=== PATIENT | male | born 1930 | race Caucasian/White ===

== ENCOUNTER 2016-08-31 22:34 | Inpatient (IN) | payer MEDICARE, OTHER ==
[~2016-08-31] VITALS: Ht 172.7 cm; Wt 71.4 kg
--- NOTE | ~2016-08-31 | HP ---
PATIENT'S NAME: JULISSA CHINCHILLA [facility] AGE: 86 Y [address] ROOM: [place] [address] LOCATION: GPCU ADMIT DATE: 09/01/2016 History & Physical DISCHARGE DATE: FAMILY PHYSICIAN: Patrick Reynolds MD ATTENDING PHYSICIAN: MAIA ALBRIGHT V DATE OF SERVICE: CHIEF COMPLAINT: Weak. History is provided by the ER physician primarily as the patient is a very poor historian. HISTORY OF PRESENT ILLNESS: This is an 86-year-old male with past medical history as documented further below. Apparently, the patient and his spend approximately half their time in [place], and came back recently from there. The patient developed fever and fatigue, and was brought into the ER today. He himself actually does not volunteer any symptoms. However, his felt that he was weak, and he did indeed have a fever of 102 in the ER. Per history as conveyed to me by the ER provider, the patient was also sick in [place] and spent a couple of days in the hospital, though we do not have the details of that hospitalization. At this point, the patient actually volunteers no complaints. REVIEW OF SYSTEMS: All systems have been reviewed and are negative aside for pertinent positives mentioned above. PAST MEDICAL HISTORY: As extracted from our charts, 1. Coronary artery disease, status post CABG. 2. Aortic stenosis, status post aortic valve replacement. 3. Parkinson disease. 4. Dementia. 5. CKD, stage 3. 6. Anemia of chronic disease. 7. Transitional bladder cell. 8. Hypertension. CURRENT MEDICATIONS: 1. Aspirin. 2. Carbidopa/levodopa. 3. Cholestyramine. 4. Ferrous sulfate. PATIENT'S NAME: JULISSA CHINCHILLA [facility] AGE: 86 Y [address] ROOM: [place] [address] LOCATION: GPCU ADMIT DATE: 09/01/2016 History & Physical DISCHARGE DATE: FAMILY PHYSICIAN: Patrick Reynolds MD ATTENDING PHYSICIAN: MAIA ALBRIGHT V 5. Galantamine. 6. Losartan. 7. Multivitamin. 8. Omeprazole. 9. Pramipexole. 10. Simvastatin. 11. Lorazepam. 12. Seroquel. 13. Sertraline. SOCIAL HISTORY: The patient denies any ongoing toxic habits, though he is not a reliable provider of history. FAMILY HISTORY: Reviewed and noncontributory due to advanced age. PHYSICAL EXAMINATION: VITAL SIGNS: His temperature max was 102.2, blood pressure upon my visit was 95/65, heart rate was in the 80s, respirations were 20, and saturating 96 on room air. GENERAL: He appears chronically ill, frail, elderly male, in no acute distress. NEUROLOGIC: Nonfocal. EYES: Showed pupils are equal and reactive to light. LYMPHATIC: Showed no cervical lymphadenopathy. ENDOCRINE: Showed no thyromegaly. LUNGS: Demonstrated crackles at the right base, slightly more pronounced than at the left base. HEART: Regular with 2/6 systolic murmur and 1+ pitting lower extremity edema. GASTROINTESTINAL: Abdomen is soft, nontender, and nondistended. GENITOURINARY: Reveals no costovertebral angle tenderness. VASCULAR: Showed 2+ pedal pulses. PSYCHIATRIC: The patient is actually alert and oriented to himself and place, but not to time. LABORATORY DATA AND DIAGNOSTIC STUDIES: Review of studies from the ER showed an EKG with deep S waves in leads V1 through V3. A biochemical profile, which is significant for a troponin of 0.072 and creatinine of 1.8, which is his baseline. CBC that shows normal white count. No bandemia. Urinalysis is unremarkable. CAT scan of his chest demonstrated atelectasis versus early infiltrate bilaterally, as well as cardiomegaly. ASSESSMENT AND PLAN: PATIENT'S NAME: JULISSA CHINCHILLA [facility] AGE: 86 Y [address] ROOM: [place] [address] [facility] ADMIT DATE: 09/01/2016 History & Physical DISCHARGE DATE: FAMILY PHYSICIAN: Patrick Reynolds MD ATTENDING PHYSICIAN: MAIA ALBRIGHT V This is an 86-year-old male, who is being admitted with 1. Febrile illness after traveling abroad. The patient was started on Levaquin here in the ER for presumed pneumonia. We will continue that. We will check for infulenza. We will request an ID consultation as the patient has just came back from [place]. We will follow his fever curve and treat his temperatures. 2. Parkinson disease. Continue on his carbidopa/levodopa. 3. Dementia. Continue with galantamine. 4. Cardiomegaly on the CT. We will monitor the patient on telemetry and get an echocardiogram as there were also some pleural effusions bilaterally. 5. Troponin elevation. We will monitor the patient on telemetry and obtain a troponin. I feel that this may be related to his chronic kidney disease. Additional management will depend on clinical course. Time dedicated to this patient's encounter is 25 minutes. MD TERESE GARCIA/camilo /[id number] D: [id number] T: [id number] HISTORY & PHYSICAL
--- NOTE | ~2016-08-31 | ECHO ---
Transthoracic Echocardiography Report (TTE) Demographics Patient Name JULISSA CHINCHILLA Date of Study 09/01/2016 Patient Number [id number] Visit Number [id number] Date of 1930 Room Number G6317 Gender Male Number Age 86 year(s) Referring Rodolfo Mack Security Alarm Technician Ronal Truong RVT, Physician RDGERMAN Physician Interpreting Zofia Macario Steel Burner Physician MD Supervising Ordering Arlene Saeed MD/ALANA Physician Nurse Stress Receiving Dock Checker Conclusions Contractility Score Summary Normal Left Ventricular contractility was noted. Summary The estimated left ventricular ejection fraction is 55% with normal WM and internal dimension.Moderate septal left ventricular hypertrophy. The left atrium is severely dilated. Mild mitral regurgitation by color Doppler. Moderate mitral annular calcification. The aortic valve is moderately sclerotic (? bioprosthetic valve) There is a mild elevation of velocity through the aortic valve. Procedure Type of Study TTE procedure:2D Echocardiogram. Procedure Date Date: 09/01/2016 Start: 03:30 PM Study Location: Inpatient Portable Technical Quality: Adequate visualization Indications:Cardiomegaly. Appropriate Use Criteria: 8 Patient Status: Routine HR: 99 bpm BP: 142/63 mmHg M-Mode/2D Measurements LV Diastolic Dimension: 4.64 cm LV Systolic Dimension: 3.36 cm LV Septum Diastolic: 1.86 cm LV PW Diastolic: 0.73 cm AO Root Dimension: 2.7 cm Cardiac Output: 6.28 l/min AV Cusp Separation: 1.7 cm RV Diastolic Dimension: 3.09 cm LA volume: 91 ml LVOT: 2.2 cm RV Base: 3.87 cm LVOT VTI: 16.7 cm RV Mid: 3.12 cm LV Stroke volume: 63.45 ml TAPSE: 1.93 cm TDI-S': 13.2 cm/s Doppler Measurements AV Peak Velocity: 2.18 m/s MV Peak E-Wave: 0.9 m/s AV Peak Gradient: 19.01 mmHg MV Peak A-Wave: 1.11 m/s AV Mean Gradient: 12 mmHg MV E/A Ratio: 0.81 LVOT Peak Velocity: 0.94 m/s MV P1/2t: 59 msec PV Peak Velocity: 0.92 m/s E' Septal Velocity: 0.04 m/s PV Peak Gradient: 3.42 mmHg E' Lateral Velocity: 0.05 m/s A' Septal Velocity: 0.07 m/s A' Lateral Velocity: 0.09 m/s Findings Left Ventricle Moderate septal left ventricular hypertrophy with normal internal dimension,EF and WM. Right Ventricle Normal right ventricle structure and function. Left Atrium The left atrium is severely dilated. There is no evidence of patent foramen ovale or atrial septal defect by color Doppler. Right Atrium Normal right atrial size. Increased RA pressures. Mitral Valve Mild mitral regurgitation by color Doppler. Moderate mitral annular calcification. Aortic Valve The aortic valve is moderately sclerotic. There is a mild elevation of velocity through the aortic valve. Tricuspid Valve Normal tricuspid valve structure and function. Pulmonic Valve Normal pulmonic valve structure and function. Pericardial Effusion No evidence of pericardial effusion. Miscellaneous Visualized portions of the aortic root and ascending aorta appear normal in size. Suboptimal subcostal window to evaluate the IVC and interatrial septum. Pleural Effusion No evidence of pleural effusion. Contractility Score LV regional wall motion:(0-Non visualized 1-Normal 2-Hypokinesis 3-Akinesis 4-Dyskinesis 5-Aneurysm) Signature dtt: Amirah Armijo dtd: 09/01/16 1530 Physician Self Edit
--- NOTE | ~2016-08-31 | DS ---
PATIENT'S NAME: JULISSA CHINCHILLA [facility] AGE: 86 Y [address] ROOM: G6317 [place], [place] [address] LOCATION: GPCU ADMIT DATE: 09/01/2016 Discharge Summary DISCHARGE DATE: 09/03/2016 FAMILY PHYSICIAN: Patrick Reynolds MD ATTENDING PHYSICIAN: Liu Jacobs V FINAL DIAGNOSES: 1. Influenza B. 2. Elevated troponins. 3. Chronic obstructive pulmonary disease exacerbation. 4. Acute encephalopathy. 5. Chronic dementia. 6. Stage 3 chronic kidney disease. 7. Arrhythmia. 8. Hypertension. 9. Acute hypoxic respiratory failure. HISTORY OF PRESENT ILLNESS: For full details of admission, please see the H and P dictated by Dr. Jacobs. In short, the patient presented to the ER with complaints of a fever, fatigue, and not feeling very well for 24 hour period. The patient and his had just returned from [place]. LABORATORY DATA: Sodium on admission 139, potassium 3.9, chloride 106, CO2 24, BUN 26, and creatinine 1.8. Liver enzymes were normal. Most prior to discharge, sodium 141, potassium 4.1, chloride 112, CO2 20, BUN 21, and creatinine 1.7. His mag was 1.3, which he was given a replacement prior to discharge. Troponin values on the 3rd 0.072, on the 4th 0.324, on the 5th 0.537. White blood cell count on admission 6.5, hemoglobin 10.7, hematocrit 33.7, and platelet count 162. Most prior to discharge, white blood cell count 6, hemoglobin 10.4. Influenza studies; he was positive for influenza B on admission. Procalcitonin on admission was less than 0.05. Blood cultures and urine cultures were negative. X-RAY DATA: Thoracic CT scan on admission showed cardiomegaly, atelectasis, and no evidence of mass. Chest x-ray on the 6th for coughing and wheezing did not show development of a pneumonia. HOSPITAL COURSE: The patient was admitted through the emergency room after being admitted with a febrile illness. He is admitted to PCU and given aggressive IV hydration. He was started on IV Levaquin. He was resumed on his home meds. His influenza studies returned positive and he was initiated on Tamiflu 75 mg twice a day for 7 days. His troponins were noted to be elevated. An echocardiogram was obtained, which showed his ejection fraction to be 55%. He had moderate septal hypertrophy. His left atrium was dilated. He had a sclerotic aortic valve. The troponins were tracked and they did PATIENT'S NAME: JULISSA CHINCHILLA [facility] AGE: 86 Y [address] ROOM: [place] [address] LOCATION: GPCU ADMIT DATE: 09/01/2016 Discharge Summary DISCHARGE DATE: 09/03/2016 FAMILY PHYSICIAN: Patrick Reynolds MD ATTENDING PHYSICIAN: Liu Jacobs V remain elevated and his rhythm appeared was predominantly sinus, he had frequent PACs, at times, it almost appeared that he was having AFib. I did have Dr. Thompson see this patient from a Cardiology standpoint because the patient had a history of coronary artery disease and it was most likely thought that he could have had an ischemic event; however, due to his advanced age and the fact that he was doing so well, it was felt that we would just manage it medically. His fever broke, he did continue to have issues with coughing and wheezing, he was placed on Mucinex and given Solu-Medrol, a chest x-ray was done to follow up to make sure that he did not develop pneumonia. He continued to improve, remained afebrile, remained without chest pain, ambulated in the hallway without any difficulty, it was felt that he was stable for discharge to home on September 03. He is to follow up with his primary care provider, Dr. Jay Reynolds, in 3-5 days. DISCHARGE MEDICATIONS: 1. Aspirin 81 mg daily. 2. Ferrous sulfate 325 mg daily. 3. Cozaar 50 mg daily. 4. Multivitamin daily. 5. Seroquel 50 mg at bedtime and 25 mg in the morning. 6. Zoloft 50 mg daily. 7. Simvastatin 20 mg at bedtime. 8. Carbidopa 25/100 1 pill twice daily. 9. Cholestyramine 4 g daily. 10. Razadyne ER 8 mg daily. 11. Mirapex 0.25 mg twice daily. 12. Omeprazole 40 mg daily. 13. Lorazepam 1 mg 3 times daily as needed. 14. Norvasc 5 mg daily. 15. Guaifenesin 600 mg 3 times daily. 16. Tamiflu 30 mg twice daily to complete a course through September 05. 17. Prednisone 20 mg 3 times daily. PROGNOSIS: Overall, prognosis at discharge was good. The did voice understanding. REZA ARAIZA MD LAW/modl /[id number] PATIENT'S NAME: JULISSA CHINCHILLA [facility] AGE: 86 Y [address] ROOM: [place] [address] LOCATION: [facility] ADMIT DATE: 09/01/2016 Discharge Summary DISCHARGE DATE: 09/03/2016 FAMILY PHYSICIAN: Patrick Reynolds MD ATTENDING PHYSICIAN: Liu Jacobs V CC: Patrick Reynolds MD d: 09/05/16 0126 t: 09/06/16 1301, DISCHARGE SUMMARY
--- NOTE | ~2016-08-31 | CON ---
PATIENT'S NAME: JULISSA CHINCHILLA [facility] AGE: 86 Y [address] ROOM: [place] [id number] LOCATION: GPCU ADMIT DATE: 09/01/2016 Consultation DISCHARGE DATE: FAMILY PHYSICIAN: Patrick Reynolds MD ATTENDING PHYSICIAN: MAIA ALBRIGHT V DATE OF CONSULTATION: 09/02/2016 REFERRING PHYSICIAN: JORGITO VILLA MD REASON FOR CARDIOLOGY CONSULT: Elevated troponin level. HISTORY OF PRESENT ILLNESS: This is an 86-year-old male, who has a previous history of stroke after his CABG and currently has advanced Parkinson disease with dementia. He is currently admitted with influenza B. When questioned, he denies any symptoms and most questions are answered by his regarding his previous symptoms prior to hospitalization as well as his medical history. She states he was admitted with increased shortness of breath and cough and he did have a noted wheeze and fever. No overall complaints of chest pain. Once again, he does have advanced Parkinson disease with dementia and due to that, he is not physically active and has not been for the past 2 years. At the time of this consult, he is resting comfortably in his chair and appears to be in no acute distress. PAST MEDICAL HISTORY: 1. Coronary artery disease with a history of coronary artery bypass graft. 2. Aortic stenosis with an aortic valve replacement. 3. Advanced Parkinson disease with dementia. 4. Chronic kidney disease. 5. History of bladder cancer. 6. Chronic anemia. 7. Hypertension. FAMILY HISTORY: The patient's father had a history of coronary artery disease and myocardial infarction. He has 2 brothers, who are diabetic and have coronary artery disease. SOCIAL HISTORY: The patient denies ever using tobacco. He also denies alcohol or illicit drug use. CURRENT MEDICATIONS: 1. Magnesium sulfate IV replacement 1 gram x1. PATIENT'S NAME: JULISSA CHINCHILLA [facility] AGE: 86 Y [address] ROOM: [id number] [place] [id number] LOCATION: GPCU ADMIT DATE: 09/01/2016 Consultation DISCHARGE DATE: FAMILY PHYSICIAN: Patrick Reynolds MD ATTENDING PHYSICIAN: MAIA ALBRIGHT V 2. Aspirin 81 mg p.o. daily. 3. Cozaar 50 mg p.o. daily. 4. Ferrous sulfate 325 mg p.o. twice daily. 5. Mucinex 600 mg p.o. 3 times daily. 6. Lactinex 1 tablet p.o. twice daily. 7. Mirapex 0.25 mg p.o. twice daily. 8. Oseltamivir phosphate 30 mg p.o. twice daily. 9. Prevalite 4 grams p.o. daily at noon. 10. Protonix 40 mg p.o. daily in the morning. 11. Razadyne 4 mg p.o. twice daily. 12. Seroquel 25 mg p.o. daily in the morning. 13. Seroquel 50 mg p.o. daily in the evening. 14. Sinemet 25/100 one tablet p.o. twice daily. 15. Multivitamin 1 tablet p.o. daily. 16. Zocor 20 mg p.o. daily in the evening. 17. Zoloft 50 mg p.o. daily. MEDICATION ALLERGIES: 1. Azithromycin causing burning at the IV site when he was infused. 2. Ambien causing hallucinations. REVIEW OF SYSTEMS: Pertinent positive review of systems listed in the HPI. All other review of systems evaluated and negative. DIAGNOSTICS: CMS evaluation shows a sodium of 139, potassium of 3.9, BUN of 26, creatinine of 1.8, and a glucose of 86. CBC evaluation shows a white blood cell count of 6, hemoglobin of 10.4, hematocrit of 32.7, and a platelet of 136. Cardiac enzyme evaluation shows a CPK of 93, then 107; CK-MB of 1.6, then 3.0; and a troponin I of 0.072, then 0.324. His echocardiogram shows an ejection fraction of 55% with normal wall motion noted. There is a presence of his bioprosthetic aortic valve. PHYSICAL EXAMINATION: VITAL SIGNS: Temperature 98.9, pulse 80, respirations 18, blood pressure 150/62, and O2 saturation 93% on room air. The patient weighs 71.9 kg. SKIN: [place], warm, and dry. EYES: Sclerae clear. No xanthelasmas. ENT: Oral mucosa is pink and moist. No jugular venous distention or carotid bruits. CHEST: Respirations are even and slightly labored. Lung sounds show bilateral coarse expiratory rhonchi. HEART: Irregular rate and rhythm. Normal S1 and S2. Appears to be in a sinus rhythm with very frequent PACs. PATIENT'S NAME: JULISSA CHINCHILLA [facility] AGE: 86 Y [address] ROOM: [id number] [place] [id number] [facility] ADMIT DATE: 09/01/2016 Consultation DISCHARGE DATE: FAMILY PHYSICIAN: Patrick Reynolds MD ATTENDING PHYSICIAN: MAIA ALBRIGHT V ABDOMEN: Soft and nontender. MUSCULOSKELETAL: Equal muscle strength to upper and lower extremities bilaterally against resistance. EXTREMITIES: Peripheral pulses palpable. No clubbing, cyanosis, or edema. PSYCH: Disoriented to place and time. He is alert and oriented to self. IMPRESSION AND PLAN: Per Dr. Thompson. 1. Coronary artery disease with a history of coronary artery bypass grafting. We will continue his aspirin and statin. He is not on a beta- radha due to his severe chronic obstructive pulmonary disease. 2. Elevated troponins. 3. Accelerated hypertension. We will add amlodipine to his current losartan. 4. Chronic kidney disease with a creatinine of 1.7 currently. 5. Advanced Parkinson disease with dementia. 6. History of bladder cancer. 7. Hypomagnesemia, we will replace. With the patient's frequent PACs, we are unable to exclude brief episodes of atrial fibrillation. Dr. Thompson did discuss with the patient and his about long-term anticoagulation. The patient does have unsteadiness of gait and has fallen over 25 times and the most recent fall was in June 2016. The patient and his do not want long-term anticoagulation due to this risk. There is also the noted mild elevation in troponins and most likely secondary to demand supply mismatch, secondary to his COPD exacerbation. Overall, the patient and family do not want aggressive measures including cardiac catheterization, which is a reasonable consideration due to his medical comorbidities. We will continue to monitor, evaluate, and treat as appropriate. Thank you Dr. Alayna Erazo for this consult. Thank you for allowing [facility] to interact in the care of this patient. ALICE BARROSO APRN FOR MD SATNAM DUGAN/modl /[id number] d: 09/03/16 0014 t: 09/21/16 1931, CONSULTATION REPORT
--- NOTE | ~2016-08-31 | ER ---
PATIENT'S NAME: JULISSA CHINCHILLA [facility] AGE: 86 Y [address] ROOM: [place] [address] LOCATION: GPCU ADMIT DATE: 09/01/2016 ER/Outpatient Report DISCHARGE DATE: FAMILY PHYSICIAN: Patrick Reynolds MD ATTENDING PHYSICIAN: MAIA ALBRIGHT V TIME OF PATIENT ARRIVAL: 2234 hours. TIME OF PATIENT EVALUATION: 2234 hours. CHIEF COMPLAINT: Cough and weakness. HISTORY OF PRESENT ILLNESS: This is an 86-year-old male who presents to the ER with his who states that he started feeling ill today. The patient's states he was doing well yesterday, and then today, developed some cough, altered mental status, and some shortness of breath. She is not for sure if he has been running any fevers or not at home. She states they just got back from [place]. They were in [place] for 6 months, and they returned a couple of weeks ago. She states that while they were down there, he did have pneumonia. The patient is a poor historian and does not offer any history. ALLERGIES: AZITHROMYCIN. MEDICATIONS: Please see medication list, nurse's notes. PAST MEDICAL HISTORY: 1. Bladder cancer. 2. Parkinson's. 3. Skin cancer. 4. CHF. 5. COPD. 6. Heart disease. 7. Hypertension. 8. Recent pneumonia in [place]. 9. Hiatal hernia. 10. AAA. 11. Chronic kidney disease, stage 3. 12. History of anemia. PATIENT'S NAME: JULISSA CHINCHILLA [facility] AGE: 86 Y [address] ROOM: [place] [address] LOCATION: GPCU ADMIT DATE: 09/01/2016 ER/Outpatient Report DISCHARGE DATE: FAMILY PHYSICIAN: Patrick Reynolds MD ATTENDING PHYSICIAN: MAIA ALBRIGHT V PAST SURGICAL HISTORY: 1. Open heart surgery with 3 bypasses. 2. Aortic valve replacement. 3. Cholecystectomy. 4. Hernia repair. SOCIAL HISTORY: Denies smoking, drug, or alcohol use. REVIEW OF SYSTEMS: A 10-point review of systems was completed and was negative with the exception of those discussed in the HPI, and this is provided through his . PHYSICAL EXAMINATION: VITAL SIGNS: Height 5 feet 7 inches stated per , weight 73.5 kg taken, blood pressure is 168/93, pulse 107, respirations 20, temperature is 102.2 degrees tympanically, and saturation is 92% on room air. GENERAL: Alert, frail, elderly male in no acute distress. HEENT. Head: Normocephalic. He does have moist mucous membranes. Eyes: Pupils are equal and reactive to light. NECK: Supple. No lymphadenopathy. LUNGS: He does have crackles bilaterally, but more prominent on the left side. HEART: He does have a murmur noted. Irregular rate. ABDOMEN: Soft and nontender. EXTREMITIES: He does have 1+ pitting edema to lower extremities. He is able to move all of his extremities. SKIN: Warm, dry, and intact. NEUROLOGIC: Gait is not observed. LABORATORY DATA: X-rays and labs are pending. EMERGENCY ROOM COURSE: I will be turning the care over to Dr. Lovett at this time. During my course with the patient, we did establish an IV and did get 2 sets of blood cultures. The patient's care will be turned over to Dr. Lovett at this time. The patient and the patient's understand and agree with care. LALA PALOMINO PA-C FOR MD HAMLET HARDWICK/camilo PATIENT'S NAME: JULISSA CHINCHILLA [facility] AGE: 86 Y [address] ROOM: [place] [address] LOCATION: GPCU ADMIT DATE: 09/01/2016 ER/Outpatient Report DISCHARGE DATE: FAMILY PHYSICIAN: Patrick Reynolds MD ATTENDING PHYSICIAN: MAIA ALBRIGHT V /[id number] d: 09/01/16 1635 t: 09/11/16 0633, OUTPATIENT REPORT
--- NOTE | ~2016-08-31 | ER ---
PATIENT'S NAME: JULISSA CHINCHILLA [facility] AGE: 86 Y [address] ROOM: [place] [address] LOCATION: GPCU ADMIT DATE: 09/01/2016 ER/Outpatient Report DISCHARGE DATE: FAMILY PHYSICIAN: Patrick Reynolds MD ATTENDING PHYSICIAN: MAIA ALBRIGHT V Time of Arrival: 2234 hours. Time of Evaluation: 2236 hours. IDENTIFICATION: An 86-year-old male who was initially seen briefly by ZANDER Hanson. I quickly assumed care after her initial assessment. HISTORY OF PRESENT ILLNESS: The patient is an 86-year-old male, who complains of shortness of breath, altered mental status, and cough, starting earlier today. They just returned home from [place] where they spend 6 months of the year. He was hospitalized in June for pneumonia in [place] for 2 days. He has had a fever, chills, productive cough, uncertain color of the sputum, shortness of breath, and altered mental status today according to his . PAST MEDICAL HISTORY: ALLERGIES: AZITHROMYCIN. CURRENT MEDICATIONS: 1. Aspirin 81 mg daily. 2. Carbidopa/levodopa 25/100 two times daily. 3. Cholestyramine 4 g 1 packet at noon. 4. Ferrous sulfate 325 mg daily. 5. Razadyne ER 8 mg daily. 6. Cozaar 50 mg daily. 7. Multivitamin daily. 8. Omeprazole 40 mg daily. 9. Mirapex 0.25 mg b.i.d. 10. Seroquel 25 mg daily, 50 mg at bedtime. 11. Sertraline 50 mg daily. 12. Simvastatin 20 mg daily. 13. Lorazepam 1 mg p.r.n. MEDICAL PROBLEMS: Coronary artery disease, status post previous CABG; aortic stenosis, status post aortic valve replacement; Parkinson's disease; dementia; chronic kidney disease; anemia of chronic disease; bladder cancer; hypertension; and hiatal PATIENT'S NAME: JULISSA CHINCHILLA [facility] AGE: 86 Y [address] ROOM: [place] [address] LOCATION: GPCU ADMIT DATE: 09/01/2016 ER/Outpatient Report DISCHARGE DATE: FAMILY PHYSICIAN: Patrick Reynolds MD ATTENDING PHYSICIAN: KAGANAS,MAIA V hernia. The patient's indicates he has a history of AAA; I have not been able to find documentation of that in the old records. PRIOR SURGERIES: Cardiac stents, CABG, aortic valve replacement, cholecystectomy and hernia repair, cystoscopy and fulguration of bladder tumor. FAMILY HISTORY: No pertinent family history identified. SOCIAL HISTORY: The patient is , lives in [place] 6 months of the year and in [place] 6 months of the year. Tobacco use, denies. Alcohol use, denies. Drug use, denies. REVIEW OF SYSTEMS: Unable to obtain from the patient, but review of systems was otherwise negative according to the . PHYSICAL EXAMINATION: VITAL SIGNS: Height 5 feet 7 inches, weight 73.5 kg. Blood pressure 168/93, pulse 107, respirations 20, temperature 102.2, and saturations 92% on room air. GENERAL: An 86-year-old male who is very hard of hearing, quiet, does answer some questions, in no acute distress. HEENT: Head: Normocephalic, atraumatic. Ears: TMs translucent, both ears. Nose: Mucosa pink. No lesions or drainage. Mouth: No lesions. Pharynx benign. NECK: Supple. No lymphadenopathy. LUNGS: Clear to auscultation. HEART: Regular rate and rhythm. ABDOMEN: Soft, nondistended, nontender. SKIN: [place], warm, and dry. No lesions or rashes noted. NEURO: The patient is somewhat lethargic, but does answer questions. He is disoriented at times. Cranial nerves 2 through 12 grossly intact. Motor strength 5/5 throughout. Sensation is intact to light touch. EMERGENCY DEPARTMENT COURSE: Tylenol was given for fever. EKG: Normal sinus rhythm at 98 beats per minute. No acute ST elevation or depression. No prior EKG available at this time for comparison. Hemoglobin 10.7, previous hemoglobin 10.6 in January of 2016; hematocrit 33.7; platelets 162; white count 6.5, normal differential. INR 1.0. Sodium 139; potassium 3.9; chloride 106; CO2 of 24; BUN 26; creatinine 1.8, this is a stable creatinine for him; blood sugar 86; GFR 36. Liver enzymes normal. CPK 93, CK-MB 1.6. Troponin I elevated at 0.072. No PATIENT'S NAME: JULISSA CHINCHILLA [facility] AGE: 86 Y [address] ROOM: [address] [place] [address] LOCATION: GPCU ADMIT DATE: 09/01/2016 ER/Outpatient Report DISCHARGE DATE: FAMILY PHYSICIAN: Patrick Reynolds MD ATTENDING PHYSICIAN: MAIA ALBRIGHT V previous troponin I available for comparison. One-view chest x-ray: Post- sternotomy changes, poor inspiratory effort. It is a portable view, but there does appear to be maybe a little bit of widening of his mediastinum and there is an infiltrate in the right base. Lactate 0.8. Procalcitonin less than 0.05. Blood cultures x2 drawn. UA negative. Urine culture pending. CT scan chest with no contrast shows bilateral pleural effusions with pleural thickening, atelectasis or early consolidation at the lung bases, abdominal aortic aneurysm incompletely visualized at least 4.5 cm transverse diameter, cardiomegaly. Influenza A and B ordered but apparently not received or done here in the ER. IMPRESSION AND PLAN: 1. Pneumonia. Plan: Levaquin 500 mg IV given here in the emergency room. Normal saline initiated at 75 mL/h. He did drop his blood pressure to 85 briefly. He was given a 300 mL fluid bolus followed by 100 mL/h and his blood pressure improved. He does not meet the sepsis criteria. 2. Parkinson disease. 3. Hypertension. 4. Anemia, stable. 5. Chronic kidney disease, stable. 6. Elevated troponin I, probably secondary to renal insufficiency. We will trend. The patient will be admitted to the hospital by Dr. Albright. Dr. Albright evaluated the patient in the emergency room. ALISA BAKER MD CAR/modl /[id number] d: 09/01/1623 t: 09/11/16 0630, OUTPATIENT REPORT
[~2016-08-31 22:34] MED LIST: 8 HOUR650 MG PO; ASPIR-LOW81 MG PO; AUGMENTIN875 MG PO; CARBIDOPA-LEVO1 EAC6 PO; CLINDAMYCIN150 MG; COZAAR50 MG PO; FEOSOL325 MG PO; GALANTAMINE; LORAZEPAM1 MG PO; MIRAPEX0.25 MG PO; MIRAPEX0.5 MG PO; MULTIVITAMINS1 EAC1 PO; NORVASC2.5 MG PO; OMEPRAZOLE20 MG PO; OMEPRAZOLE40 MG PO; PRAMIPEXOLE PO; PREVALITE PACKET4 GM PO; PRILOSEC40 MG PO; QUESTRAN POWDE378 GM PO; RAZADYNE ER8 MG PO; RAZADYNE8 MG PO; SEROQUEL25 MG PO; SEROQUEL50 MG PO; SINEMET 25/1001 TAB PO; ZOCOR20 M1 PO; ZOLOFT50 M1 PO
[2016-08-31 22:51] LABS: BASOPHIL # 0.1 K/uL (0.0-0.2); BASOPHIL % 1.1 %; EOSINOPHIL # 0.2 K/uL (0.0-0.5); EOSINOPHIL % 3.1 %; HEMATOCRIT 33.7 % (33.0-50.0); HEMOGLOBIN 10.7 g/dL (11.0-16.0); IMMATURE GRANULOCYTE % 0.6 %; LYMPHOCYTE # 0.6 K/uL (0.8-4.0); LYMPHOCYTE % 8.7 %; MCH 26.4 pg (27.0-34.0); MCHC 31.8 gm/dL (32.0-36.5); MCV 83.2 fl (83.0-98.0); MONOCYTE # 0.8 K/uL (0.0-1.0); MONOCYTE % 12.8 %; MPV 10.3 fl (9.4-12.4); NEUTROPHIL # (ANC) 4.8 K/uL (1.4-9.0); NEUTROPHIL % 73.7 %; NRBC % 0 /100WBC (0-0.00); PLATELET COUNT 162 K/uL (150-450); RBC 4.05 M/uL (3.50-5.50); RDW-CV 15.3 % (11.9-14.6); WBC 6.5 K/uL (4.0-11.0)
[2016-08-31 22:59] LABS: PROTIME 10.5 SECONDS (9.8-11.4)
[2016-08-31 23:11] LABS: ALBUMIN 3.5 gm/dL (3.5-5.0); ANION GAP 12.9 (10.0-19.0); CALCIUM 8.1 mg/dL (8.5-10.5); CREATININE 1.8 mg/dL (0.6-1.3); POTASSIUM 3.9 mMol/L (3.7-5.1); TOTAL BILIRUBIN 0.3 mg/dL (0.0-1.5); TOTAL PROTEIN 7.5 g/dL (6.0-8.4)
[2016-08-31 23:45] LABS: BILIRUBIN URINE NEGATIVE (NEGATIVE); BLOOD URINE 25 /UL (NEGATIVE); COLOR URINE YELLOW (YELLOW); GLUCOSE URINE NEGATIVE (NEGATIVE); KETONE URINE NEGATIVE (NEGATIVE); LEUKOCYTES URINE NEGATIVE /UL (NEGATIVE); NITRITE URINE NEGATIVE (NEGATIVE); PROTEIN URINE 15 mg/dL (NEGATIVE); TURBIDITY URINE CLEAR (CLEAR); UROBILINOGEN URINE NORMAL (NORMAL)
[2016-09-01 00:19] LABS: BACTERIA URINE NEGATIVE (NEGATIVE); WBC URINE NEGATIVE #/HPF (NEGATIVE)
[2016-09-01] MEDS ORDERED: ATIVAN 1 MG1 MG PO (05:08)
[2016-09-01 06:24] LABS: BASOPHIL # 0.1 K/uL (0.0-0.2); EOSINOPHIL # 0.2 K/uL (0.0-0.5); HEMATOCRIT 32.7 % (33.0-50.0); HEMOGLOBIN 10.4 g/dL (11.0-16.0); IMMATURE GRANULOCYTE % 0.7 %; LYMPHOCYTE % 16.9 %; MCH 26.7 pg (27.0-34.0); MCHC 31.8 gm/dL (32.0-36.5); MCV 84.1 fl (83.0-98.0); MONOCYTE # 0.9 K/uL (0.0-1.0); MONOCYTE % 14.7 %; MPV 9.3 fl (9.4-12.4); NEUTROPHIL # (ANC) 3.9 K/uL (1.4-9.0); NEUTROPHIL % 63.7 %; NRBC % 0 /100WBC (0-0.00); PLATELET COUNT 136 K/uL (150-450); RBC 3.89 M/uL (3.50-5.50); RDW-CV 15.5 % (11.9-14.6)
[2016-09-01 06:42] LABS: ANION GAP 11.9 (10.0-19.0); CALCIUM 7.9 mg/dL (8.5-10.5); CREATININE 1.8 mg/dL (0.6-1.3); POTASSIUM 3.9 mMol/L (3.7-5.1)
--- NOTE | 2016-09-01 11:38 | NUR ---
Introduced self and role of care management to patient and his . They lives outside of [place] for 6 months of the year and in [place] the other 6 months. They just recently returned from [place]. He states that he is able to do all his own ADL's. He does use a walker. His states that she assists as needed. She plans on him returning home on discharge. She did ask if I was the one that if she feels he is being discharged too soon would have the papers to call Medicare and ask for a review. I did tell her that I was the one that she would get that information from. She asked lots of questions as to why Dr Reynolds was not seeing his own patients in the hospital and whether this was a hospital issue or Dr Nation decision. I explained to her that his not following patients in the hospital was a decsion that their clinic made. When one of their patients is admitted here then the hospitalist will follow. We also discussed that since she has COPD and CAD maybe she should speak with Dr Reynolds about getting Tamilfu ordered as a precautionary measure since patient tested positive for influenza B. She stated that she will discuss this with the hospitalist first before makeing a decision. She deneies any other needs at this time. Will continue to follow.
--- NOTE | 2016-09-01 13:07 | NUR ---
PT IS A NON SMOKER WITH RARE ASCULTABLE BASALAR RALES. A NON SMOKER, NON ASTHMATIC, DENIES SHORTNESS OF BREATH, PT IS ON ROOM AIR, DRY NON PRODUCTIVE COUGH. WE WILL MAKE ALBUTEROL RX'S Q4 PRN FOR DYSPNEA. WE WILL REEVALUATE EVERY 24 HOURS AND RESCORE DAILY
--- NOTE | 2016-09-01 17:47 | NUR ---
Significant Event: Alert and disoriented to place/time. REstless at times. Febrile at times highest temp was 100.3. Last assessment temp was 98.5 SBP- 140-160s. P- 90s. Tachypnic R- 24-26. Audible wheezes. Room air with saturations in mid to upper 90s. L) AC IV infusing NS at 100ml/hr, discontinue after this liter. Influenza B positive, tamiflu initiated and levaquin d/c'd. PT/OT consulted. Up with 1-2A. Inc of urine x3. at bedside.
--- NOTE | 2016-09-02 05:43 | NUR ---
Significant events: Pt alert, disoriented to place and time. Up 2PA. No complaints of pain. VSS. Temp upon 2nd assessment was 101.6, tylenol given and afebrile next assessment. Tamiflu continues. Audible wheezes at times. RA-1L/NC. Slept most of shift. Possible home today.
[2016-09-02 06:20] LABS: ALBUMIN 2.8 gm/dL (3.5-5.0); ANION GAP 13.1 (10.0-19.0); CALCIUM 7.7 mg/dL (8.5-10.5); CREATININE 1.7 mg/dL (0.6-1.3); MAGNESIUM 1.3 mg/dL (1.8-2.6); PHOSPHORUS 2.9 mg/dL (2.5-4.9); POTASSIUM 4.1 mMol/L (3.7-5.1)
--- NOTE | 2016-09-02 12:07 | NUR ---
Updated patient's that status had been changed to INPATIENT as of 09/01 at 1500.
--- NOTE | 2016-09-02 17:24 | NUR ---
Significant Event: PT HAS BEEN ALERT AND FAIRLY ORIENTED ALL THIS SHIFT. DENIES PAIN OR NEEDS. DR BURCIAGA IN LATER THIS PM AND NEW ORDERS RECIEVED. VSS, SLIGHTLY HTN. MOVES WITH ASSIST OF 2, WILL REPLACE MG FOR A MG OF 1.3. Follow up: MONITOR
--- NOTE | 2016-09-02 18:51 | NUR ---
1730 PT REFUSED AFTER 4 STICKS OF LAB TRYING TO GET BLOOD FOR ENZYMES. CAME BACK ABOUT 15 MINUTES LATER AND PT DID THEN AGREE TO A FINGER STICK FOR LAB DRAW
--- NOTE | 2016-09-03 04:55 | NUR ---
Significant Event: Pt A&Ox1-2; forgetful. Hx of dementia and Parkinson's. VS stable, remains on RA. Very audible wheezes present. Low grade temp upon shift change, afebrile rest of shift. Denies pain. Incontinent of stool and urine (at times). No BM since 08/31. Up with x1-2 assist--heavy 2 assist, almost pivot-transfer when not wanting to walk. Pt is [place]. Bottom is slightly reddened. PIV LAC, SL. Received 2g Mg 5/5 for Mg of 1.3. Due to pt's HTN, started 5mg Norvasc. Pt in iso for influenza B + Follow up: Possible d/c home today?
[2016-09-03] MEDS ORDERED: NORVASC5 MG PO (10:11)
[2016-09-03] MEDS ORDERED: MUCINEX600 MG PO (10:15)
[2016-09-03] MEDS ORDERED: TAMIFLU30 MG PO (10:18)
[2016-09-03] MEDS ORDERED: DELTASONE20 MG PO (10:32)
== END 2016-09-03 12:50 | disposition disaster alternative care site (69) | DRG 193 ==
LOC: GMED 22:34 → GPCU 09-01 02:56
PROVIDERS: Internal Medicine; Physician Assistant Medical; ADMIT Internal Medicine
DX: J10.00 Influenza due to other identified influenza virus with unspecified type of pneumonia (principal); G93.40 Encephalopathy, unspecified; J90 Pleural effusion, not elsewhere classified; G20 Parkinson's disease; F03.90 Unspecified dementia, unspecified severity, without behavioral disturbance, psychotic disturbance, mood disturbance, and anxiety; J44.1 Chronic obstructive pulmonary disease with (acute) exacerbation; J10.1 Influenza due to other identified influenza virus with other respiratory manifestations; J18.9 Pneumonia, unspecified organism; N18.3 Chronic kidney disease, stage 3 (moderate); D63.8 Anemia in other chronic diseases classified elsewhere; Z95.2 Presence of prosthetic heart valve; Z95.1 Presence of aortocoronary bypass graft; Z85.51 Personal history of malignant neoplasm of bladder; I25.10 Atherosclerotic heart disease of native coronary artery without angina pectoris; I12.9 Hypertensive chronic kidney disease with stage 1 through stage 4 chronic kidney disease, or unspecified chronic kidney disease; Z79.01 Long term (current) use of anticoagulants; E83.42 Hypomagnesemia; Z66 Do not resuscitate
CPT/HCPCS: G0237; G8978; G8979; G8980; G8987; G8988; G8989; J1956; J2920; J3475; J7030